=== PATIENT | female | born 1980 | race Caucasian/White ===

== ENCOUNTER 2017-12-11 09:59 | Emergency (ER) | payer OTHER ==
[~2017-12-11] VITALS: Ht 157.5 cm; Wt 100.0 kg
[~2017-12-11 09:59] MED LIST: AMOXICILLIN/CL875 MG PO; ATIVAN0.5 MG PO; AUGMENTINES600 PO; FLAGYL500 MG PO; FLEXERIL5 M1 PO; MEDDOSEPAK PO; NAPROSYN500 MG PO; POLYTRIM OU; PROCTOSOL HC2.5 % RE; SOLU-MEDROL125 MG IM; TAM75CAP PO
[2017-12-11] MEDS ORDERED: PRILOSEC20 MG/CAP PO (10:15)
[2017-12-11 11:21] LABS: HEMOGLOBIN 15.2 g/dl (12.0-16.0); IMMATURE GRANULOCYTES 0.4 % (0.0-1.0); MEAN CELL VOLUME 90.9 fL CALC (80.0-100.0); NEUT# 15.73 thou/uL (2.00-7.15); RED BLOOD COUNT 5.06 mill/uL (4.20-5.60); RED CELL DISTRI WIDTH 13.4 % (11.5-15.5)
[2017-12-11 11:22] LABS: URINE BLOOD DIPSTICK SMALL (NEGATIVE); URINE COLOR YELLOW; URINE GLUCOSE - DIPSTICK NEGATIVE (NEGATIVE); URINE KETONE TRACE mg/dL (NEGATIVE); URINE NITRITE - DIPSTICK NEGATIVE (Negative); URINE PROTEIN - DIPSTICK TRACE mg/dL (NEG-TRACE); URINE SPECIFIC GRAVITY >=1.030; URINE UROBILINOGEN - DIPSTICK 0.2 E.U./dL (0.2)
[2017-12-11 11:26] LABS: URINE BILIRUBIN - DIPSTICK SMALL (NEGATIVE); URINE LEUK ESTERASE SMALL (NEGATIVE)
[2017-12-11 11:27] LABS: URINE CLARITY CLOUDY
[2017-12-11 11:31] LABS: ANION GAP 21 (6-22 (CALC)); BUN 19 mg/dL (7-17); BUN/CREATININE RATIO 24 (12-20 (CALC)); CARBON DIOXIDE 18 mmol/l (22-30); CHLORIDE 111 mmol/l (95-108); CREATININE 0.8 mg/dL (0.5-1.0); GFR > 60 ML/MIN (>=60 (CALC)); GFR FOR AFR.AMER. > 60 ML/MIN (>=60 (CALC)); LIPASE 104 u/l (23-300); POTASSIUM 4.7 mmol/l (3.5-5.1); SODIUM 145 mmol/l (137-146)
[2017-12-11 11:36] LABS: URINE AMORPH SEDIMENT MANY hpf (NONE-FEW); URINE SQUAMOUS EPITHELIAL CELL FEW EPI/hpf (0-FEW)
[2017-12-11 12:48] LABS: C. DIFFICILE TOXIN A&B NEGATIVE (NEGATIVE)
[2017-12-11] MEDS ORDERED: ZOFRAN4 M1 PO (13:31)
[2017-12-11] MEDS ORDERED: CEPHALEXIN500 M1 PO (13:37)
[2017-12-11 13:45] VITALS: BP 120/79
== END 2017-12-11 13:45 | disposition home or self-care (01) | DRG 392 ==
LOC: ED 09:59
PROVIDERS: Family Medicine
DX: K52.9 Noninfective gastroenteritis and colitis, unspecified (principal); N39.0 Urinary tract infection, site not specified; R11.2 Nausea with vomiting, unspecified; R10.84 Generalized abdominal pain
CPT/HCPCS: Q9967

== ENCOUNTER 2019-03-26 20:21 | Emergency (ER) | payer OTHER ==
[~2019-03-26] VITALS: Ht 157.5 cm; Wt 102.0 kg
[~2019-03-26 20:21] MED LIST changes: +CEPHALEXIN500 M1 PO; +PRILOSEC20 MG/CAP PO; +ZOFRAN4 M1 PO
[2019-03-26 21:08] LABS: IMMATURE GRANULOCYTES 0.3 % (0.0-5.0); MEAN CELL VOLUME 85.8 fL CALC (80.0-100.0); MEAN CORPUSCULAR HGB 28.4 pG CALC (26.0-32.0); NEUT# 6.26 thou/uL (2.00-7.15); RED BLOOD COUNT 3.95 mill/uL (4.20-5.60); RED CELL DISTRI WIDTH 14.9 % (11.5-15.5)
[2019-03-26 21:09] LABS: HEMATOCRIT 33.9 % (37.0-47.0); HEMOGLOBIN 11.2 g/dl (12.0-16.0)
[2019-03-26 21:36] LABS: ALBUMIN 4.4 g/dL (3.2-5.0); ALKALINE PHOSPHATASE 45 u/l (38-126); ANION GAP 15 (6-22 (CALC)); BILIRUBIN, TOTAL 0.4 mg/dL (0.0-1.4); BUN 13 mg/dL (7-17); BUN/CREATININE RATIO 18 (12-20 (CALC)); CARBON DIOXIDE 21 mmol/l (22-30); CHLORIDE 108 mmol/l (95-108); CREATININE 0.7 mg/dL (0.5-1.0); GFR > 60 ML/MIN (>=60 (CALC)); GFR FOR AFR.AMER. > 60 ML/MIN (>=60 (CALC)); POTASSIUM 4.2 mmol/l (3.5-5.1); SODIUM 140 mmol/l (137-146); TOTAL PROTEIN 7.6 g/dL (6.3-8.2)
[2019-03-26 21:37] LABS: SGOT/AST 43 u/l (14-36)
[2019-03-26 21:49] LABS: MYOGLOBIN 16 ng/mL (0 - 62)
[2019-03-26] MEDS ORDERED: AMOXICILLIN500 MG PO (22:18)
[2019-03-26 22:30] VITALS: BP 136/70
== END 2019-03-26 22:30 | disposition home or self-care (01) ==
LOC: ED 20:21
PROVIDERS: Family Medicine
DX: J02.0 Streptococcal pharyngitis (principal); R07.89 Other chest pain; F41.9 Anxiety disorder, unspecified; R51 Headache

== ENCOUNTER 2019-05-01 12:53 | Emergency (ER) | payer OTHER ==
[~2019-05-01] VITALS: Ht 157.5 cm; Wt 100.0 kg
[~2019-05-01 12:53] MED LIST changes: +AMOXICILLIN500 MG PO
[2019-05-01] MEDS ORDERED: NAPROSYN500 MG PO (13:28)
[2019-05-01 13:50] VITALS: BP 120/83
== END 2019-05-01 13:50 | disposition home or self-care (01) ==
LOC: ED 12:53
DX: S93.402A Sprain of unspecified ligament of left ankle, initial encounter (principal); M19.072 Primary osteoarthritis, left ankle and foot; W01.0XXA Fall on same level from slipping, tripping and stumbling without subsequent striking against object, initial encounter

== ENCOUNTER 2019-07-21 15:38 | Emergency (ER) | payer OTHER ==
[~2019-07-21] VITALS: Ht 157.5 cm; Wt 100.0 kg
[2019-07-21] MEDS ORDERED: IRON325 M1 PO (15:47)
[2019-07-21] MEDS ORDERED: B121000 MCG PO (15:48)
[2019-07-21 16:50] LABS: HEMATOCRIT 36.4 % (37.0-47.0); IMMATURE GRANULOCYTES 0.3 % (0.0-5.0); MEAN CORPUSCULAR HGB 29.3 pG CALC (26.0-32.0); NEUT# 4.53 thou/uL (2.00-7.15); RED BLOOD COUNT 4.09 mill/uL (4.20-5.60); RED CELL DISTRI WIDTH 15.1 % (11.5-15.5)
[2019-07-21 17:09] LABS: ALKALINE PHOSPHATASE 42 u/l (38-126); ANION GAP 11 (6-22 (CALC)); BILIRUBIN, TOTAL 0.2 mg/dL (0.0-1.4); BUN 10 mg/dL (7-17); BUN/CREATININE RATIO 16 (12-20 (CALC)); CARBON DIOXIDE 26 mmol/l (22-30); CHLORIDE 107 mmol/l (95-108); CREATININE 0.6 mg/dL (0.5-1.0); GFR > 60 ML/MIN (>=60 (CALC)); GFR FOR AFR.AMER. > 60 ML/MIN (>=60 (CALC)); POTASSIUM 4.1 mmol/l (3.5-5.1); SGOT/AST 21 u/l (14-36); SODIUM 139 mmol/l (137-146)
[2019-07-21 17:15] LABS: HCG SERUM/URINE (NEG/POS) NEGATIVE (NEGATIVE)
[2019-07-21 20:00] VITALS: BP 122/68
== END 2019-07-21 20:01 | disposition home or self-care (01) ==
LOC: ED 15:38
PROVIDERS: Family Medicine
DX: B34.9 Viral infection, unspecified (principal); F17.210 Nicotine dependence, cigarettes, uncomplicated; R51 Headache; R05 Cough

== ENCOUNTER 2019-11-22 | Emergency (ER) | payer MEDICAID ==
[~2019-11-22] MED LIST changes: +B121000 MCG PO; +IRON325 M1 PO
[2019-11-22 17:12] LABS: HEMATOCRIT 38.3 % (37.0-47.0); HEMOGLOBIN 12.9 g/dl (12.0-16.0); IMMATURE GRANULOCYTES 0.2 % (0.0-5.0); MEAN CELL VOLUME 89.9 fL CALC (80.0-100.0); MEAN CORPUSCULAR HGB 30.3 pG CALC (26.0-32.0); MEAN CORPUSCULAR HGB CONC 33.7 g/L CALC (32.0-36.0); NEUT# 5.61 thou/uL (2.00-7.15); RED BLOOD COUNT 4.26 mill/uL (4.20-5.60); RED CELL DISTRI WIDTH 12.5 % (11.5-15.5)
[2019-11-22 17:32] LABS: ALBUMIN 4.1 g/dL (3.2-5.0); ALKALINE PHOSPHATASE 50 u/l (38-126); ANION GAP 14 (6-22 (CALC)); BILIRUBIN, TOTAL 0.3 mg/dL (0.0-1.4); BUN 16 mg/dL (7-17); BUN/CREATININE RATIO 26 (12-20 (CALC)); CARBON DIOXIDE 22 mmol/l (22-30); CHLORIDE 106 mmol/l (95-108); CREATININE 0.6 mg/dL (0.5-1.0); GFR > 60 ML/MIN (>=60 (CALC)); GFR FOR AFR.AMER. > 60 ML/MIN (>=60 (CALC)); POTASSIUM 3.9 mmol/l (3.5-5.1); SGOT/AST 33 u/l (14-36); SODIUM 138 mmol/l (137-146); TOTAL PROTEIN 7.5 g/dL (6.3-8.2)
[2019-11-22] MEDS ORDERED: VOLTAREN1%GEL TOP (18:32)
== END 2019-11-22 18:56 | disposition home or self-care (01) ==
PROVIDERS: Family Medicine
DX: R07.9 Chest pain, unspecified (principal); M25.512 Pain in left shoulder; F17.200 Nicotine dependence, unspecified, uncomplicated

== ENCOUNTER 2019-12-24 | Emergency (ER) | payer MEDICAID ==
[~2019-12-24] MED LIST changes: +VOLTAREN1%GEL TOP
[2019-12-24] MEDS ORDERED: AMOXICILLIN875 MG PO (17:59)
[2019-12-24] MEDS ORDERED: TAM75CAP PO (17:59)
== END 2019-12-24 18:01 | disposition home or self-care (01) | DRG 153 ==
DX: J02.0 Streptococcal pharyngitis (principal); Z20.828 Contact with and (suspected) exposure to other viral communicable diseases

== ENCOUNTER 2020-01-04 | Emergency (ER) | payer MEDICAID ==
[~2020-01-04] MED LIST changes: +AMOXICILLIN875 MG PO
[2020-01-04] MEDS ORDERED: VIT C/VIT E PO (15:14)
[2020-01-04] MEDS ORDERED: CLARITIN-D1 TA4 PO (15:15)
[2020-01-04 15:23] LABS: HEMATOCRIT 38.6 % (37.0-47.0); HEMOGLOBIN 13.1 g/dl (12.0-16.0); IMMATURE GRANULOCYTES 0.2 % (0.0-5.0); MEAN CELL VOLUME 89.6 fL CALC (80.0-100.0); MEAN CORPUSCULAR HGB 30.4 pG CALC (26.0-32.0); MEAN CORPUSCULAR HGB CONC 33.9 g/dL CAL (32.0-36.0); NEUT# 5.59 thou/uL (2.00-7.15); RED BLOOD COUNT 4.31 mill/uL (4.20-5.60); RED CELL DISTRI WIDTH 12.4 % (11.5-15.5)
[2020-01-04 15:28] LABS: ALBUMIN 4.3 g/dL (3.2-5.0); ALKALINE PHOSPHATASE 45 u/l (38-126); ANION GAP 10 (6-22 (CALC)); BUN 12 mg/dL (7-17); BUN/CREATININE RATIO 19 (12-20 (CALC)); CARBON DIOXIDE 26 mmol/l (22-30); CHLORIDE 105 mmol/l (95-108); CREATININE 0.6 mg/dL (0.5-1.0); GFR > 60 ML/MIN (>=60 (CALC)); GFR FOR AFR.AMER. > 60 ML/MIN (>=60 (CALC)); SGOT/AST 28 u/l (14-36); SODIUM 137 mmol/l (137-146); TOTAL PROTEIN 7.6 g/dL (6.3-8.2)
[2020-01-04 15:36] LABS: BILIRUBIN, TOTAL 0.5 mg/dL (0.0-1.4)
[2020-01-04 15:40] LABS: MYOGLOBIN 22 ng/mL (0 - 62)
[2020-01-04 15:49] LABS: URINE BILIRUBIN - DIPSTICK NEGATIVE (NEGATIVE); URINE BLOOD DIPSTICK NEGATIVE (NEGATIVE); URINE COLOR YELLOW; URINE GLUCOSE - DIPSTICK NEGATIVE (NEGATIVE); URINE KETONE NEGATIVE (NEGATIVE); URINE LEUK ESTERASE NEGATIVE (NEGATIVE); URINE NITRITE - DIPSTICK NEGATIVE (Negative); URINE PH 5.5 (4.5-8.0); URINE PROTEIN - DIPSTICK NEGATIVE (NEG-TRACE); URINE UROBILINOGEN - DIPSTICK 0.2 E.U./dL (0.2)
[2020-01-04 15:53] LABS: BARBITURATES NEGATIVE (NEGATIVE); COCAINE NEGATIVE (NEGATIVE); METHADONE NEGATIVE (NEGATIVE); OXCYCODONE NEGATIVE (NEGATIVE); TETRAHYDROCANNABIONOL NEGATIVE (NEGATIVE); TRICYLIC ANTIDEPRESSANTS NEGATIVE (NEGATIVE)
[2020-01-04] MEDS ORDERED: CLEOCIN300 MG PO (16:27)
== END 2020-01-04 16:40 | disposition home or self-care (01) ==
PROVIDERS: Emergency Medicine
DX: R07.9 Chest pain, unspecified (principal); J02.0 Streptococcal pharyngitis

== ENCOUNTER 2020-02-20 | Emergency (ER) | payer MEDICAID ==
[~2020-02-20] MED LIST changes: +CLARITIN-D1 TA4 PO; +CLEOCIN300 MG PO; +VIT C/VIT E PO
[2020-02-20] MEDS ORDERED: ALLEGRA180 MG PO (01:57)
[2020-02-20] MEDS ORDERED: PREVACID15 M1 PO (01:57)
[2020-02-20] MEDS ORDERED: TRAMADOL HYDROC50 MG PO (04:23)
== END 2020-02-20 05:22 | disposition home or self-care (01) ==
DX: S50.311A Abrasion of right elbow, initial encounter (principal); S40.212A Abrasion of left shoulder, initial encounter; S80.811A Abrasion, right lower leg, initial encounter; S00.93XA Contusion of unspecified part of head, initial encounter; S80.12XA Contusion of left lower leg, initial encounter; V03.00XA Pedestrian on foot injured in collision with car, pick-up truck or van in nontraffic accident, initial encounter

== ENCOUNTER 2021-02-22 09:11 | Emergency (ER) | payer MEDICAID ==
[~2021-02-22 09:11] MED LIST changes: +ALLEGRA180 MG PO; +PREVACID15 M1 PO; +TRAMADOL HYDROC50 MG PO
[2021-02-22 10:04] LABS: URINE BILIRUBIN - DIPSTICK NEGATIVE (NEGATIVE); URINE BLOOD DIPSTICK TRACE-LYSED (NEGATIVE); URINE COLOR YELLOW; URINE GLUCOSE - DIPSTICK NEGATIVE (NEGATIVE); URINE KETONE NEGATIVE (NEGATIVE); URINE LEUK ESTERASE NEGATIVE (NEGATIVE); URINE PROTEIN - DIPSTICK NEGATIVE (NEG-TRACE); URINE SPECIFIC GRAVITY 1.015; URINE UROBILINOGEN - DIPSTICK 0.2 E.U./dL (0.2)
[2021-02-22 10:09] LABS: URINE NITRITE - DIPSTICK NEGATIVE (Negative)
[2021-02-22 10:35] VITALS: BP 121/66
[2021-02-22] MEDS ORDERED: VOLTAREN1%GEL TOP (10:40)
[2021-02-22] MEDS ORDERED: CYCLOBENZAPR5 MG PO (10:40)
== END 2021-02-22 10:44 | disposition home or self-care (01) ==
LOC: ED 09:11
PROVIDERS: Family Medicine
DX: M54.5 Low back pain (principal)

== ENCOUNTER 2021-04-18 12:16 | Emergency (ER) | payer MEDICAID ==
[~2021-04-18] VITALS: Ht 157.5 cm; Wt 103.6 kg
[~2021-04-18 12:16] MED LIST changes: +CYCLOBENZAPR5 MG PO
[2021-04-18 12:49] LABS: HEMATOCRIT 39.8 % (37.0-47.0); HEMOGLOBIN 13.1 g/dl (12.0-16.0); IMMATURE GRANULOCYTES 0.1 % (0.0-5.0); MEAN CELL VOLUME 91.5 fL CALC (80.0-100.0); MEAN CORPUSCULAR HGB 30.1 pG CALC (26.0-32.0); MEAN CORPUSCULAR HGB CONC 32.9 g/dL CAL (32.0-36.0); NEUT# 10.86 thou/uL (2.00-7.15); RED BLOOD COUNT 4.35 mill/uL (4.20-5.60); RED CELL DISTRI WIDTH 13.2 % (11.5-15.5)
[2021-04-18 13:00] LABS: ALBUMIN 4.3 g/dL (3.2-5.0); ALKALINE PHOSPHATASE 52 u/l (38-126); ANION GAP 13 (6-22 (CALC)); BILIRUBIN, TOTAL 0.8 mg/dL (0.0-1.4); BUN 18 mg/dL (7-17); BUN/CREATININE RATIO 29 (12-20 (CALC)); CARBON DIOXIDE 21 mmol/l (22-30); CHLORIDE 104 mmol/l (95-108); CREATININE 0.6 mg/dL (0.5-1.0); GFR > 60 ML/MIN (>=60 (CALC)); GFR FOR AFR.AMER. > 60 ML/MIN (>=60 (CALC)); LIPASE 65 u/l (23-300); POTASSIUM 4.2 mmol/l (3.5-5.1); SGOT/AST 21 u/l (14-36); SODIUM 134 mmol/l (137-146); TOTAL PROTEIN 7.8 g/dL (6.3-8.2)
[2021-04-18] MEDS ORDERED: ZOFRAN4 M1 PO (14:29)
[2021-04-18 14:37] LABS: URINE BILIRUBIN - DIPSTICK NEGATIVE (NEGATIVE); URINE BLOOD DIPSTICK NEGATIVE (NEGATIVE); URINE COLOR YELLOW; URINE GLUCOSE - DIPSTICK NEGATIVE (NEGATIVE); URINE KETONE NEGATIVE (NEGATIVE); URINE LEUK ESTERASE NEGATIVE (NEGATIVE); URINE PROTEIN - DIPSTICK NEGATIVE (NEG-TRACE); URINE UROBILINOGEN - DIPSTICK 0.2 E.U./dL (0.2)
[2021-04-18 14:38] LABS: URINE NITRITE - DIPSTICK NEGATIVE (Negative)
[2021-04-18] MEDS ORDERED: CVS OMEPRAZOLE20 MG PO (14:46)
[2021-04-18 15:12] VITALS: BP 96/51
== END 2021-04-18 15:26 | disposition home or self-care (01) ==
LOC: ED 12:16
PROVIDERS: Family Medicine
DX: R11.2 Nausea with vomiting, unspecified (principal); R19.7 Diarrhea, unspecified

== ENCOUNTER 2024-07-02 21:40 | Emergency (ER) | payer OTHER ==
[~2024-07-02] VITALS: Ht 157.5 cm; Wt 108.0 kg
[~2024-07-02 21:40] MED LIST changes: +CVS OMEPRAZOLE20 MG PO
[2024-07-02 23:01] VITALS: BP 157/96
[2024-07-03] MEDS ORDERED: FLOXIN OTIC0.3 % AS (10:58)
== END 2024-07-02 23:01 | disposition left against medical advice (07) | DRG 951 ==
LOC: ED 21:40
DX: Z53.21 Procedure and treatment not carried out due to patient leaving prior to being seen by health care provider (principal)

== ENCOUNTER 2024-07-03 10:29 | Emergency (ER) | payer OTHER ==
[~2024-07-03] VITALS: Ht 157.5 cm; Wt 107.0 kg
[2024-07-03 10:39] VITALS: BP 152/108
[2024-07-03 10:46] VITALS: BP 139/93
[2024-07-03] MEDS ORDERED: FLOXIN OTIC0.3 % AS (10:58)
[2024-07-03 11:01] VITALS: BP 128/92
[2024-07-03 11:16] VITALS: BP 133/73
== END 2024-07-03 11:27 | disposition home or self-care (01) | DRG 153 ==
LOC: ED 10:29
DX: H66.92 Otitis media, unspecified, left ear (principal)

== ENCOUNTER 2024-07-12 17:50 | Emergency (ER) | payer OTHER ==
[~2024-07-12] VITALS: Ht 157.5 cm; Wt 107.0 kg
[~2024-07-12 17:50] MED LIST changes: +FLOXIN OTIC0.3 % AS
[2024-07-12 17:59] VITALS: BP 170/118
[2024-07-12 18:01] VITALS: BP 165/104
[2024-07-12] MEDS ORDERED: SODIUM CHLORIDE 0.9% 1,000 ML IV STA (18:05)
[2024-07-12] MEDS ORDERED: ONDANSETRON HCl 4 MG/2 ML SDV IV STA (18:05)
[2024-07-12] MEDS ORDERED: MORPHINE SULFATE 4 MG/ML VIAL IV STA (18:05)
[2024-07-12] MEDS ORDERED: LACTULOSE 20 GM/30 ML UDC PO ONE (18:10)
[2024-07-12] MEDS ORDERED: MAGNESIUM HYDROXIDE 30 ML UDC PO ONE (18:10)
[2024-07-12] MEDS ORDERED: HYDROCORTISONE ACETATE PR ONE (18:15)
[2024-07-12] MEDS ORDERED: Polyethylene Glycol 3350 17 GM/PKT PO ONE (18:15)
[2024-07-12 18:16] LABS: BASO% 0.3 % (0-3); EOS% 0.2 % (0-8); HEMATOCRIT 37.3 % (37.0-47.0); HEMOGLOBIN 12.2 g/dl (12.0-16.0); IMMATURE GRANULOCYTES 0.6 % (0.0-5.0); MEAN CELL VOLUME 88.2 fL CALC (80.0-100.0); MEAN CORPUSCULAR HGB 28.8 pG CALC (26.0-32.0); MEAN CORPUSCULAR HGB CONC 32.7 g/dL CAL (32.0-36.0); NEUT# 8.69 thou/uL (2.00-7.15); NEUT% 70.9 % (42-76); RED BLOOD COUNT 4.23 mill/uL (4.20-5.60); RED CELL DISTRI WIDTH 14.3 % (11.5-15.5)
[2024-07-12 18:29] LABS: ALBUMIN 4.5 g/dL (3.2-5.0); BILIRUBIN, TOTAL 0.5 mg/dL (0.02-1.3); CREATININE 0.8 mg/dL (0.5-1.0); POTASSIUM 4.2 mmol/l (3.5-5.1); TOTAL PROTEIN 7.9 g/dL (6.3-8.2)
[2024-07-12] MEDS ORDERED: KETOROLAC TROMETHAMINE 30 MG/ML SDV IV ONE (19:05)
[2024-07-12] MEDS ORDERED: LIDOCAINE HCL 2 % JELLY TOP ONE (19:40)
[2024-07-12 19:51] LABS: URINE BILIRUBIN - DIPSTICK Negative (NEGATIVE); URINE BLOOD DIPSTICK Trace-intact (NEGATIVE); URINE GLUCOSE - DIPSTICK Negative (NEGATIVE); URINE KETONE Negative (NEGATIVE); URINE LEUK ESTERASE Negative (NEGATIVE); URINE NITRITE - DIPSTICK Negative (Negative); URINE PROTEIN - DIPSTICK Negative (NEG-TRACE); URINE SPECIFIC GRAVITY 1.015; URINE UROBILINOGEN - DIPSTICK 0.2 E.U./dL (0.2)
[2024-07-12 19:52] LABS: URINE COLOR Yellow
[2024-07-12 20:00] VITALS: BP 136/95
[2024-07-12] MEDS ORDERED: MIRALAX17 GM/SCOO PO (20:03)
[2024-07-12] MEDS ORDERED: ANUCORT-HC25 MG RE (20:03)
[2024-07-12 20:17] VITALS: BP 136/95
== END 2024-07-12 20:18 | disposition home or self-care (01) | DRG 392 ==
LOC: ED 17:50
PROVIDERS: Nurse Practitioner
DX: K59.00 Constipation, unspecified (principal); K64.4 Residual hemorrhoidal skin tags
CPT/HCPCS: Q9967

== ENCOUNTER 2024-11-05 12:03 | Emergency (ER) | payer OTHER ==
[~2024-11-05] VITALS: Ht 157.5 cm; Wt 104.3 kg
[2024-11-05] VITALS (13 sets, daily range): BP systolic 115–135; BP diastolic 72–102
[~2024-11-05 12:03] MED LIST changes: +ANUCORT-HC25 MG RE; +MIRALAX17 GM/SCOO PO
[2024-11-05] MEDS ORDERED: SODIUM CHLORIDE 0.9% 1,000 ML IV STA (12:28)
[2024-11-05] MEDS ORDERED: PROMETHAZINE HCL 25 MG/ML AMP IV STA (12:28)
[2024-11-05] MEDS ORDERED: Pantoprazole Sodium 40 MG VIAL (Protonix) IV STA (12:28)
[2024-11-05] MEDS ORDERED: FAMOTIDINE 10MG/ML 2ML SDV IV ONE (12:30)
[2024-11-05 12:44] LABS: URINE BLOOD DIPSTICK Small (NEGATIVE); URINE GLUCOSE - DIPSTICK Negative (NEGATIVE); URINE KETONE 15 mg/dL (NEGATIVE); URINE LEUK ESTERASE Trace (NEGATIVE); URINE NITRITE - DIPSTICK Negative (Negative); URINE PH 5.5 (4.5-8.0); URINE PROTEIN - DIPSTICK Trace mg/dL (NEG-TRACE); URINE SPECIFIC GRAVITY >=1.030; URINE UROBILINOGEN - DIPSTICK 0.2 E.U./dL (0.2)
[2024-11-05 12:46] LABS: URINE COLOR Yellow
[2024-11-05 12:47] LABS: URINE AMORPH SEDIMENT MANY hpf (NONE-FEW); URINE EPITHELIAL CELLS MODERATE EPI/hpf (0-FEW); URINE MUCUS FEW hpf (NONE-FEW); URINE RBC 0-2 RBC/hpf (0-5); URINE WBC 0-2 WBC/hpf (0-5)
[2024-11-05 12:51] LABS: BASO% 0.2 % (0-3); EOS% 0.7 % (0-8); HEMATOCRIT 38.3 % (37.0-47.0); HEMOGLOBIN 12.8 g/dl (12.0-16.0); IMMATURE GRANULOCYTES 0.1 % (0.0-5.0); LYMPH% 14.7 % (15-41); MEAN CELL VOLUME 86.7 fL CALC (80.0-100.0); MEAN CORPUSCULAR HGB CONC 33.4 g/dL CAL (32.0-36.0); MONO% 3.9 % (2-13); NEUT# 7.78 thou/uL (2.00-7.15); NEUT% 80.4 % (42-76); RED BLOOD COUNT 4.42 mill/uL (4.20-5.60); RED CELL DISTRI WIDTH 13.4 % (11.5-15.5)
[2024-11-05 12:56] LABS: ALBUMIN 4.2 g/dL (3.2-5.0); BILIRUBIN, TOTAL 0.6 mg/dL (0.02-1.3); CREATININE 0.8 mg/dL (0.5-1.0); POTASSIUM 4.1 mmol/l (3.5-5.1); TOTAL PROTEIN 7.2 g/dL (6.3-8.2)
[2024-11-05] MEDS ORDERED: KETOROLAC TROMETHAMINE 30 MG/ML SDV IV STA (14:13)
[2024-11-05] MEDS ORDERED: MORPHINE SULFATE 4 MG/ML VIAL IV STA (14:13)
[2024-11-05] MEDS ORDERED: PROTONIX40 M2 PO (15:47)
[2024-11-05] MEDS ORDERED: ZOFRAN4 MG/TAB PO (15:47)
== END 2024-11-05 16:04 | disposition home or self-care (01) | DRG 392 ==
LOC: ED 12:03
PROVIDERS: Nurse Practitioner
DX: K52.9 Noninfective gastroenteritis and colitis, unspecified (principal); M54.9 Dorsalgia, unspecified
CPT/HCPCS: J2470; J2550; Q9967